=== PATIENT | female | born 1950 | race Caucasian/White ===

== ENCOUNTER 2016-12-11 20:19 | Inpatient (IN) | payer MEDICARE ==
[~2016-12-11] VITALS: Ht 167.6 cm; Wt 91.2 kg
[~2016-12-11 20:19] MED LIST: ATOR20TA PO; LEVO150T PO; OMEP20CA4 PO; OXYC-128 PO
[2016-12-11 20:45] VITALS: BP 168/88
[2016-12-11] MEDS ORDERED: MAGNESIUM HYDROXIDE 30 ML UDC PO PRN (21:30)
[2016-12-11] MEDS ORDERED: ACETAMINOPHEN 325 MG TABLET ONE (22:24)
[2016-12-11] MEDS ORDERED: TEMAZEPAM 7.5 MG CAPSULE ONE (22:24)
[2016-12-11] MEDS: ACETAMINOPHEN 325 MG TABLET PO PRN (22:35)
[2016-12-11] MEDS: TEMAZEPAM 7.5 MG CAPSULE PO PRN (22:35)
[2016-12-12] MEDS ORDERED: MAG HYDROX/AL HYDROX/SIMETH 30 ML UDC ONE (00:12)
[2016-12-12] MEDS: MAG HYDROX/AL HYDROX/SIMETH 30 ML UDC PO PRN (00:15)
[2016-12-12] MEDS ORDERED: ALBU18HF2 INH (06:41)
[2016-12-12] MEDS ORDERED: PRED50TA PO (06:41)
[2016-12-12] MEDS ORDERED: AZIT250T6 PO (06:41)
[2016-12-12 07:55] LABS: CREATININE 0.8 mg/dL (0.6-1.3)
[2016-12-12 08:14] VITALS: BP 135/84
[2016-12-12] MEDS ORDERED: FURO-145 PO (08:26)
[2016-12-12] MEDS ORDERED: BUPR-51 PO (08:26)
[2016-12-12] MEDS ORDERED: CLON2TAB4 PO (08:26)
[2016-12-12] MEDS ORDERED: POTA20LI25 PO (08:26)
[2016-12-12] MEDS ORDERED: ZOLP10TA6 PO (08:26)
[2016-12-12] MEDS ORDERED: NAPR500T3 PO (08:26)
[2016-12-12] MEDS ORDERED: ARIP30TA PO (08:30)
[2016-12-12] MEDS ORDERED: ALBUTEROL FS 2.5 MG/3 ML VIAL.NEB NEB PRN (08:30)
[2016-12-12] MEDS ORDERED: DORZ10DR11 EACHEYE (08:31)
[2016-12-12] MEDS: oxyCODONE/APAP (5/325 MG) 1 UDTAB TABLET PO PRN ×3 (11:07→23:05)
[2016-12-12] MEDS: LEVOTHYROXINE SODIUM 75 MCG TABLET PO SCH (14:18)
[2016-12-12] MEDS: PANTOPRAZOLE 40 MG TABLET.DR PO SCH (14:18)
[2016-12-12 16:00] VITALS: BP 145/93
[2016-12-12] MEDS: ARIPIPRAZOLE 5 MG TABLET PO SCH (16:27)
[2016-12-12] MEDS: BUPROPION XL 150 MG TAB.ER.24 PO SCH (16:28)
[2016-12-12 20:00] VITALS: BP 137/74
[2016-12-12] MEDS: ATORVASTATIN 10 MG TABLET PO SCH (21:49)
[2016-12-13 08:00] VITALS: BP 154/93
[2016-12-13] MEDS: BUPROPION XL 150 MG TAB.ER.24 PO SCH (09:13)
[2016-12-13] MEDS: ARIPIPRAZOLE 5 MG TABLET PO SCH (09:13)
[2016-12-13] MEDS: PANTOPRAZOLE 40 MG TABLET.DR PO SCH (09:13)
[2016-12-13] MEDS: LEVOTHYROXINE SODIUM 75 MCG TABLET PO SCH (09:14)
[2016-12-13] MEDS: ACETAMINOPHEN 325 MG TABLET PO PRN (13:07)
[2016-12-13 16:00] VITALS: BP 158/90
[2016-12-13] MEDS: oxyCODONE/APAP (5/325 MG) 1 UDTAB TABLET PO PRN (18:07)
[2016-12-13 20:00] VITALS: BP 158/79
[2016-12-13] MEDS: MAG HYDROX/AL HYDROX/SIMETH 30 ML UDC PO PRN (21:22)
[2016-12-13] MEDS: ATORVASTATIN 10 MG TABLET PO SCH (21:22)
[2016-12-13] MEDS: TEMAZEPAM 7.5 MG CAPSULE PO PRN (22:56)
[2016-12-14] MEDS: ACETAMINOPHEN 325 MG TABLET PO PRN (01:55)
[2016-12-14] MEDS: oxyCODONE/APAP (5/325 MG) 1 UDTAB TABLET PO PRN ×3 (05:36→20:22)
[2016-12-14] MEDS: LEVOTHYROXINE SODIUM 75 MCG TABLET PO SCH (08:33)
[2016-12-14] MEDS: ARIPIPRAZOLE 5 MG TABLET PO SCH (08:33)
[2016-12-14] MEDS: BUPROPION XL 150 MG TAB.ER.24 PO SCH (08:33)
[2016-12-14] MEDS: PANTOPRAZOLE 40 MG TABLET.DR PO SCH (08:33)
[2016-12-14] MEDS: LORAZEPAM 0.5 MG TABLET PO PRN (09:09)
[2016-12-14 12:14] LABS: BASOPHILS % (AUTO) 0.2 % (0.0-2.0); DIFF TOTAL % 100 %; EOSINOPHILS # (AUTO) 0.2 /CMM (0.0-0.7); EOSINOPHILS % (AUTO) 2.1 % (0.0-6.0); HEMATOCRIT 39 % (33-45); HEMOGLOBIN 12.7 g/dL (11.5-14.8); LYMPHOCYTES # (AUTO) 1.5 /CMM (0.8-4.8); LYMPHOCYTES % (AUTO) 18.9 % (20.0-44.0); MEAN CORPUSCULAR HEMOGLOBIN 29 PG (26.0-33.0); MEAN CORPUSCULAR HGB CONC 33 g/dl (31.0-36.0); MEAN CORPUSCULAR VOLUME 88 fL (82-100); MONOCYTES # (AUTO) 0.6 /CMM (0.1-1.30); MONOCYTES % (AUTO) 7.6 % (2.0-12.0); NEUTROPHILS # (AUTO) 5.6 /CMM (1.8-8.9); NEUTROPHILS % (AUTO) 71.2 % (43.0-81.0); PLATELET COUNT (AUTO) 345 /CMM (150-450); RED BLOOD CELL COUNT(AUTO) 4.39 MIL/uL (4.0-5.2); WHITE BLOOD COUNT (AUTO) 7.8 K/uL (4.3-11.0)
[2016-12-14 12:25] LABS: CALCIUM, SERUM 8.6 mg/dL (8.5-10.1); CREATININE 0.9 mg/dL (0.6-1.3); POTASSIUM 3.9 mmol/L (3.5-5.1)
[2016-12-14] MEDS: FUROSEMIDE 20 MG TABLET PO SCH (12:56)
[2016-12-14 13:27] LABS: ADD UA MICROSCOPIC NO; KETONES,URINE NEGATIVE (NEGATIVE); LEUKOCYTE ESTERASE ,URINE NEGATIVE (NEGATIVE); PH,URINE 6.5 (5.0-8.0)
[2016-12-14] MEDS ORDERED: PHENOL/SODIUM PHENOLATE 1 LOZ LOZENGE PO ONE (15:30)
[2016-12-14 16:00] VITALS: BP 132/67
[2016-12-14] MEDS ORDERED: MENTHOL/CETYLPYRD (CEPACOL) 1 LOZ LOZENGE PO ONE (16:30)
[2016-12-14] MEDS: DOCUSATE SODIUM 250 MG CAPSULE PO SCH (17:58)
[2016-12-14] MEDS: TIMOLOL MAL/DORZOLAM HCL OPHTH 10 ML BOTTLE EACHEYE SCH (17:58)
[2016-12-14] MEDS: NICOTINE PATCH (7MG) 7 MG PATCH.TD24 TD SCH (18:00)
[2016-12-14 20:00] VITALS: BP 124/71
[2016-12-14] MEDS: SENNOSIDES 8.6 MG TABLET PO SCH (21:10)
[2016-12-14] MEDS: ATORVASTATIN 10 MG TABLET PO SCH (21:10)
[2016-12-15] MEDS: oxyCODONE/APAP (5/325 MG) 1 UDTAB TABLET PO PRN ×2 (05:41→19:39)
[2016-12-15 07:41] LABS: BASOPHILS % (AUTO) 0.3 % (0.0-2.0); DIFF TOTAL % 100 %; EOSINOPHILS # (AUTO) 0.2 /CMM (0.0-0.7); EOSINOPHILS % (AUTO) 2.8 % (0.0-6.0); HEMATOCRIT 41 % (33-45); HEMOGLOBIN 13.3 g/dL (11.5-14.8); LYMPHOCYTES # (AUTO) 2.2 /CMM (0.8-4.8); LYMPHOCYTES % (AUTO) 28.6 % (20.0-44.0); MEAN CORPUSCULAR HEMOGLOBIN 29 PG (26.0-33.0); MEAN CORPUSCULAR HGB CONC 33 g/dl (31.0-36.0); MEAN CORPUSCULAR VOLUME 88 fL (82-100); MONOCYTES # (AUTO) 0.7 /CMM (0.1-1.30); MONOCYTES % (AUTO) 9.1 % (2.0-12.0); NEUTROPHILS # (AUTO) 4.5 /CMM (1.8-8.9); NEUTROPHILS % (AUTO) 59.2 % (43.0-81.0); PLATELET COUNT (AUTO) 368 /CMM (150-450); RED BLOOD CELL COUNT(AUTO) 4.61 MIL/uL (4.0-5.2); WHITE BLOOD COUNT (AUTO) 7.6 K/uL (4.3-11.0)
[2016-12-15] MEDS: BUPROPION XL 150 MG TAB.ER.24 PO SCH (08:16)
[2016-12-15] MEDS: NICOTINE PATCH (7MG) 7 MG PATCH.TD24 TD SCH (08:16)
[2016-12-15] MEDS: FUROSEMIDE 20 MG TABLET PO SCH (08:16)
[2016-12-15] MEDS: LEVOTHYROXINE SODIUM 75 MCG TABLET PO SCH (08:16)
[2016-12-15 08:17] VITALS: BP 153/72
[2016-12-15] MEDS: ARIPIPRAZOLE 5 MG TABLET PO SCH (08:17)
[2016-12-15] MEDS: DOCUSATE SODIUM 250 MG CAPSULE PO SCH (08:17)
[2016-12-15] MEDS: PANTOPRAZOLE 40 MG TABLET.DR PO SCH (08:17)
[2016-12-15] MEDS: TIMOLOL MAL/DORZOLAM HCL OPHTH 10 ML BOTTLE EACHEYE SCH ×2 (08:18→16:32)
[2016-12-15 08:30] LABS: CALCIUM, SERUM 8.7 mg/dL (8.5-10.1); CREATININE 0.9 mg/dL (0.6-1.3); PHOSPHORUS 3.5 mg/dL (2.5-4.9); POTASSIUM 4.3 mmol/L (3.5-5.1)
[2016-12-15] MEDS: ACETAMINOPHEN 325 MG TABLET PO PRN (11:19)
[2016-12-15 16:04] VITALS: BP 140/72
[2016-12-15 19:58] VITALS: BP 137/78
[2016-12-15] MEDS: ATORVASTATIN 10 MG TABLET PO SCH (21:46)
[2016-12-15] MEDS: SENNOSIDES 8.6 MG TABLET PO SCH (21:46)
[2016-12-15] MEDS: TEMAZEPAM 7.5 MG CAPSULE PO PRN (22:57)
[2016-12-16] MEDS: MAG HYDROX/AL HYDROX/SIMETH 30 ML UDC PO PRN (05:27)
[2016-12-16 08:00] VITALS: BP 124/61
[2016-12-16] MEDS: LEVOTHYROXINE SODIUM 75 MCG TABLET PO SCH (08:14)
[2016-12-16] MEDS: ARIPIPRAZOLE 5 MG TABLET PO SCH (08:20)
[2016-12-16] MEDS: DOCUSATE SODIUM 250 MG CAPSULE PO SCH (08:21)
[2016-12-16] MEDS: FUROSEMIDE 20 MG TABLET PO SCH (08:21)
[2016-12-16] MEDS: PANTOPRAZOLE 40 MG TABLET.DR PO SCH (08:21)
[2016-12-16] MEDS: BUPROPION XL 150 MG TAB.ER.24 PO SCH (08:21)
[2016-12-16] MEDS: NICOTINE PATCH (7MG) 7 MG PATCH.TD24 TD SCH (08:38)
[2016-12-16] MEDS: TIMOLOL MAL/DORZOLAM HCL OPHTH 10 ML BOTTLE EACHEYE SCH ×2 (08:43→17:01)
[2016-12-16] MEDS: oxyCODONE/APAP (5/325 MG) 1 UDTAB TABLET PO PRN ×2 (09:06→17:00)
[2016-12-16 16:00] VITALS: BP 120/72
[2016-12-16 19:53] VITALS: BP 109/60
[2016-12-16] MEDS: DIVALPROEX SODIUM 500 MG TABLET.DR PO SCH (20:03)
[2016-12-16] MEDS: ATORVASTATIN 10 MG TABLET PO SCH (21:02)
[2016-12-16] MEDS: SENNOSIDES 8.6 MG TABLET PO SCH (21:02)
[2016-12-16] MEDS: TEMAZEPAM 7.5 MG CAPSULE PO PRN (21:02)
[2016-12-17] MEDS: oxyCODONE/APAP (5/325 MG) 1 UDTAB TABLET PO PRN ×3 (04:12→17:55)
[2016-12-17] MEDS: LEVOTHYROXINE SODIUM 75 MCG TABLET PO SCH (07:30)
[2016-12-17] MEDS: PANTOPRAZOLE 40 MG TABLET.DR PO SCH (07:30)
[2016-12-17 08:12] VITALS: BP 122/65
[2016-12-17 08:26] LABS: ALBUMIN 3.2 g/dL (3.4-5.0); BILIRUBIN,TOTAL 0.4 mg/dL (0.2-1.0); CALCIUM, SERUM 8.6 mg/dL (8.5-10.1); POTASSIUM 4.4 mmol/L (3.5-5.1)
[2016-12-17] MEDS: ARIPIPRAZOLE 5 MG TABLET PO SCH (08:49)
[2016-12-17] MEDS: DOCUSATE SODIUM 250 MG CAPSULE PO SCH (08:50)
[2016-12-17] MEDS: TIMOLOL MAL/DORZOLAM HCL OPHTH 10 ML BOTTLE EACHEYE SCH ×2 (08:50→17:29)
[2016-12-17] MEDS: FUROSEMIDE 20 MG TABLET PO SCH (08:58)
[2016-12-17] MEDS: DIVALPROEX SODIUM 500 MG TABLET.DR PO SCH ×2 (08:58→20:28)
[2016-12-17] MEDS: BUPROPION XL 150 MG TAB.ER.24 PO SCH (08:58)
[2016-12-17] MEDS: NICOTINE PATCH (7MG) 7 MG PATCH.TD24 TD SCH (08:59)
[2016-12-17 16:05] VITALS: BP 114/64
[2016-12-17 20:17] VITALS: BP_SYST 109; BP_SYST 129; BP_DIAS 57
[2016-12-17] MEDS: TEMAZEPAM 7.5 MG CAPSULE PO PRN (20:29)
[2016-12-17] MEDS: ATORVASTATIN 10 MG TABLET PO SCH (22:16)
[2016-12-17] MEDS: SENNOSIDES 8.6 MG TABLET PO SCH (22:16)
[2016-12-18] MEDS: oxyCODONE/APAP (5/325 MG) 1 UDTAB TABLET PO PRN ×3 (04:33→18:52)
[2016-12-18] MEDS: FUROSEMIDE 20 MG TABLET PO SCH (09:05)
[2016-12-18] MEDS: LEVOTHYROXINE SODIUM 75 MCG TABLET PO SCH (09:06)
[2016-12-18] MEDS: ARIPIPRAZOLE 5 MG TABLET PO SCH (09:06)
[2016-12-18] MEDS: PANTOPRAZOLE 40 MG TABLET.DR PO SCH (09:06)
[2016-12-18] MEDS: DIVALPROEX SODIUM 500 MG TABLET.DR PO SCH ×2 (09:07→21:23)
[2016-12-18] MEDS: NICOTINE PATCH (7MG) 7 MG PATCH.TD24 TD SCH (09:07)
[2016-12-18] MEDS: DOCUSATE SODIUM 250 MG CAPSULE PO SCH (09:07)
[2016-12-18] MEDS: BUPROPION XL 150 MG TAB.ER.24 PO SCH (09:07)
[2016-12-18] MEDS: TIMOLOL MAL/DORZOLAM HCL OPHTH 10 ML BOTTLE EACHEYE SCH ×2 (09:10→18:17)
[2016-12-18 09:35] VITALS: BP 134/67
[2016-12-18] MEDS: ACETAMINOPHEN 325 MG TABLET PO PRN (15:02)
[2016-12-18 15:49] VITALS: BP 138/65
[2016-12-18 20:00] VITALS: BP 118/57
[2016-12-18] MEDS: TEMAZEPAM 7.5 MG CAPSULE PO PRN (21:23)
[2016-12-18] MEDS: SENNOSIDES 8.6 MG TABLET PO SCH (21:23)
[2016-12-18] MEDS: ATORVASTATIN 10 MG TABLET PO SCH (21:23)
[2016-12-19] MEDS: LORAZEPAM 0.5 MG TABLET PO PRN (02:18)
[2016-12-19] MEDS: oxyCODONE/APAP (5/325 MG) 1 UDTAB TABLET PO PRN ×2 (04:29→10:29)
[2016-12-19] MEDS: ARIPIPRAZOLE 5 MG TABLET PO SCH (08:11)
[2016-12-19] MEDS: DIVALPROEX SODIUM 500 MG TABLET.DR PO SCH (08:11)
[2016-12-19] MEDS: NICOTINE PATCH (7MG) 7 MG PATCH.TD24 TD SCH (08:11)
[2016-12-19] MEDS: LEVOTHYROXINE SODIUM 75 MCG TABLET PO SCH (08:12)
[2016-12-19] MEDS: PANTOPRAZOLE 40 MG TABLET.DR PO SCH (08:12)
[2016-12-19] MEDS: DOCUSATE SODIUM 250 MG CAPSULE PO SCH (08:12)
[2016-12-19] MEDS: BUPROPION XL 150 MG TAB.ER.24 PO SCH (08:12)
[2016-12-19] MEDS: FUROSEMIDE 20 MG TABLET PO SCH (08:12)
[2016-12-19] MEDS: TIMOLOL MAL/DORZOLAM HCL OPHTH 10 ML BOTTLE EACHEYE SCH (08:15)
[2016-12-19 08:17] VITALS: BP 138/91
== END 2016-12-19 13:05 | disposition home or self-care (01) | DRG 885 ==
LOC: GPS 20:19
PROVIDERS: ADMIT Psychiatry & Neurology Psychiatry; ATTEND Internal Medicine
DX: F33.3 Major depressive disorder, recurrent, severe with psychotic symptoms (principal); I50.30 Unspecified diastolic (congestive) heart failure; I10 Essential (primary) hypertension; E78.5 Hyperlipidemia, unspecified; K21.9 Gastro-esophageal reflux disease without esophagitis; E03.9 Hypothyroidism, unspecified; F41.9 Anxiety disorder, unspecified; M19.90 Unspecified osteoarthritis, unspecified site; E11.9 Type 2 diabetes mellitus without complications; Z91.19 Patient's noncompliance with other medical treatment and regimen
CPT/HCPCS: 36415; 80048-TC; 80053-TC; 80061-TC; 80164-TC; 81000-TC; 82565-TC; 83735-TC; 84100-TC; 85025-TC; 87081-TC; 93307-TC

== ENCOUNTER 2018-05-11 15:37 | Inpatient (IN) | payer MEDICARE ==
[~2018-05-11] VITALS: Ht 167.6 cm; Wt 79.4 kg
[~2018-05-11 15:37] MED LIST changes: +ALBU18HF2 INH; +AZIT250T13 PO; +DORZ10DR11 EACHEYE; +FURO-145 PO; +NAPR-1009 PO; +POTA20LI25 PO; +PRED50TA PO
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
--- NOTE | 2018-05-11 15:53 | NUR ---
DR. JEAN AT BEDSIDE
[2018-05-11 16:15] LABS: BASOPHILS # (AUTO) 0.1 /CMM (0.0-0.2); BASOPHILS % (AUTO) 0.8 % (0.0-2.0); EOSINOPHILS % (AUTO) 0.3 % (0.0-6.0); HEMATOCRIT 41 % (33-45); HEMOGLOBIN 13.9 g/dL (11.5-14.8); LYMPHOCYTES # (AUTO) 2.3 /CMM (0.8-4.8); MEAN CORPUSCULAR HEMOGLOBIN 30 PG (26.0-33.0); MEAN CORPUSCULAR HGB CONC 34 g/dl (31.0-36.0); MEAN CORPUSCULAR VOLUME 89 fL (82-100); MONOCYTES # (AUTO) 0.6 /CMM (0.1-1.30); MONOCYTES % (AUTO) 5.2 % (2.0-12.0); NEUTROPHILS # (AUTO) 8.3 /CMM (1.8-8.9); NEUTROPHILS % (AUTO) 73.7 % (43.0-81.0); PLATELET COUNT (AUTO) 288 /CMM (150-450); RDW COEFFICIENT OF VARIATION 14.1 (11.5-15.0); RED BLOOD CELL COUNT(AUTO) 4.63 MIL/uL (4.0-5.2); WHITE BLOOD COUNT (AUTO) 11.3 K/uL (4.3-11.0)
[2018-05-11 16:27] LABS: CALCIUM, SERUM 9.8 mg/dL (8.5-10.1); CARBON DIOXIDE 21 mmol/L (21-32); CHLORIDE 107 mmol/L (98-107); CREATININE 1.7 mg/dL (0.6-1.3); GLUCOSE 164 mg/dL (74-106); POTASSIUM 3.6 mmol/L (3.5-5.1); SODIUM SERUM 142 mmol/L (136-145); UREA NITROGEN, BLOOD 18 mg/dL (7-18)
[2018-05-11 16:34] LABS: ALANINE AMINOTRANSFERASE 42 U/L (12-78); ALBUMIN 4.7 g/dL (3.4-5.0); ALKALINE PHOSPHATASE 67 U/L (46-116); ASPARTATE AMINOTRANSFERASE 49 U/L (15-37); BILIRUBIN,DIRECT 0.1 mg/dL (0.0-0.2); TOTAL PROTEIN, SERUM 8.1 g/dL (6.4-8.2)
--- NOTE | 2018-05-11 16:36 | NUR ---
CALLED [facility] FOR PSYCH EVAL, ETA WITHIN THE HOUR
[2018-05-11] MEDS ORDERED: LORAZEPAM INJ 2 MG/ML VIAL ONE (16:44)
[2018-05-11] MEDS ORDERED: LORAZEPAM INJ 2 MG/ML VIAL IV ONE (17:00)
[2018-05-11] MEDS ORDERED: IV NS 0.9% 1,000 ML BAG IV ONE (17:00)
--- NOTE | 2018-05-11 17:04 | NUR ---
CALLED [facility] FOR PSYCH EVAL, ETA 1 HOUR
[2018-05-11] MEDS ORDERED: ZOLP5TAB2 PO (17:13)
[2018-05-11] MEDS ORDERED: BUPR300T52 PO (17:13)
[2018-05-11] MEDS ORDERED: GABA-532 PO (17:13)
[2018-05-11] MEDS ORDERED: CLON1TAB4 PO (17:13)
[2018-05-11 17:16] LABS: APPEARANCE,URINE Clear (CLEAR); BILIRUBIN,URINE SMALL (NEGATIVE); BLOOD, URINE Trace-lysed Ery/uL (NEGATIVE); COLOR,URINE Yellow (YELLOW); KETONES,URINE Trace (NEGATIVE); LEUKOCYTE ESTERASE ,URINE Negative (NEGATIVE); NITRITE, URINE Negative (NEGATIVE); PH,URINE 5.5 (5.0-8.0); PROTEIN,URINE >=300 mg/dl (NEGATIVE); UGLUCOSE Negative (NEGATIVE); UROBILINOGEN,URINE 0.2 EU/dL (0.2)
[2018-05-11 17:27] LABS: THYROID STIMULATING HORMONE 135.098 uIU/mL (0.358-3.74)
[2018-05-11 17:32] LABS: BACTERIA,URINE Few /HPF (None Seen); SQUAMOUS EPITHELIAL CELL,UR Few /HPF (None Seen); WBC,URINE 0-2 /HPF (0-3)
[2018-05-11 19:03] LABS: ALCOHOL, BLOOD < 3 mg/dL (0-0)
--- NOTE | 2018-05-11 19:16 | NUR ---
GPS 220-1 AT 2000
--- NOTE | 2018-05-11 19:33 | NUR ---
REPORT GIVEN TO JOANNA PATRICK
--- NOTE | 2018-05-11 20:26 | NUR ---
REPORT GIVEN TO EDOUARD
[2018-05-11] MEDS ORDERED: MAGNESIUM HYDROXIDE 30 ML UDC PO PRN (21:00)
[2018-05-11] MEDS ORDERED: clonazePAM 0.5 MG TABLET PO PRN (21:00)
[2018-05-11] MEDS ORDERED: TEMAZEPAM 7.5 MG CAPSULE PO PRN (21:00)
[2018-05-11] MEDS ORDERED: MAG HYDROX/AL HYDROX/SIMETH 30 ML UDC PO PRN (21:00)
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
[2018-05-11] MEDS: GABAPENTIN 100 MG CAPSULE PO SCH ×2 (23:02→23:12)
[2018-05-11] MEDS: LEVOTHYROXINE SODIUM 100 MCG TABLET PO SCH (23:02)
[2018-05-11] MEDS: ACETAMINOPHEN 325 MG TABLET PO PRN (23:02)
--- NOTE | 2018-05-11 23:16 | NUR ---
Pt c/o pain to right hip 01/10. Tylenol 650 mg/po prn given as ordered. Will continue to monitor.
--- NOTE | 2018-05-11 23:17 | NUR ---
Pt c/o of anxiety. Klonopin 0.5 mg 1 tab prn given as ordered. Will continue to momitor.
--- NOTE | 2018-05-12 00:24 | NUR ---
Tylenol effective. AR 0/10
--- NOTE | 2018-05-12 00:25 | NUR ---
Klonopin 0.5 mg effective. Pt calm and asleep.
[2018-05-12] MEDS ORDERED: DEXTROSE 50%-WATER 50 ML DISP.SYRIN IV PRN (06:30)
[2018-05-12] MEDS ORDERED: INSULIN REGULAR, HUMAN 100 UNIT/ML 3 ML VIAL SQ PRN (06:30)
[2018-05-12 07:53] LABS: BASOPHILS % (AUTO) 0.4 % (0.0-2.0); EOSINOPHILS % (AUTO) 1.5 % (0.0-6.0); HEMATOCRIT 39 % (33-45); HEMOGLOBIN 12.9 g/dL (11.5-14.8); LYMPHOCYTES # (AUTO) 2.5 /CMM (0.8-4.8); LYMPHOCYTES % (AUTO) 28.4 % (20.0-44.0); MEAN CORPUSCULAR HEMOGLOBIN 30 PG (26.0-33.0); MEAN CORPUSCULAR HGB CONC 33 g/dl (31.0-36.0); MEAN CORPUSCULAR VOLUME 92 fL (82-100); MONOCYTES # (AUTO) 0.6 /CMM (0.1-1.30); MONOCYTES % (AUTO) 6.8 % (2.0-12.0); NEUTROPHILS # (AUTO) 5.5 /CMM (1.8-8.9); NEUTROPHILS % (AUTO) 62.9 % (43.0-81.0); PLATELET COUNT (AUTO) 262 /CMM (150-450); RED BLOOD CELL COUNT(AUTO) 4.26 MIL/uL (4.0-5.2); WHITE BLOOD COUNT (AUTO) 8.8 K/uL (4.3-11.0)
[2018-05-12 07:57] LABS: ALBUMIN 4.1 g/dL (3.4-5.0); BILIRUBIN,TOTAL 1.3 mg/dL (0.2-1.0); CREATININE 1.2 mg/dL (0.6-1.3); POTASSIUM 3.4 mmol/L (3.5-5.1); TOTAL PROTEIN, SERUM 7.3 g/dL (6.4-8.2)
[2018-05-12 08:00] VITALS: BP 139/86
[2018-05-12] MEDS: BLOOD SUGAR DIAGNOSTIC 1 EACH STRIP IN SCH ×2 (08:03→12:22)
[2018-05-12 08:06] LABS: THYROID STIMULATING HORMONE 90.378 uIU/mL (0.358-3.74)
[2018-05-12] MEDS: LEVOTHYROXINE SODIUM 100 MCG TABLET PO SCH (08:37)
[2018-05-12] MEDS ORDERED: NICOTINE PATCH (21MG) 21 MG PATCH.TD24 TD SCH (09:00)
[2018-05-12] MEDS ORDERED: POTASSIUM CHLORIDE 20 MEQ TAB.PRT.SR PO ONE (09:30)
[2018-05-12] MEDS: ACETAMINOPHEN 325 MG TABLET PO PRN (14:00)
[2018-05-12] MEDS ORDERED: ARIPIPRAZOLE 5 MG TABLET PO SCH (14:00)
[2018-05-12] MEDS ORDERED: BUPROPION XL 150 MG TAB.ER.24 PO SCH (14:13)
--- NOTE | 2018-05-12 14:44 | NUR ---
ALETHEA contacted Jody Joyce [phone] pts therapist at [facility] for collateral information. SW unable to reach and left voicemail for callback.
--- NOTE | 2018-05-12 15:46 | NUR ---
INITIAL DISCHARGE PLAN: Patient may need placement. SW will follow up with therapist Jody Matthews [phone] from [facility] Address: [address] [address], [place] [address] for collateral information and pts current living situation and discharge needs. SW will help form a safe and proper discharge in collaboration with .
[2018-05-12 16:00] VITALS: BP 150/99
[2018-05-12] MEDS ORDERED: LORAZEPAM INJ 2 MG/ML VIAL IVP STA (16:33)
[2018-05-12 16:56] VITALS: BP 171/101
--- NOTE | 2018-05-12 18:05 | NUR ---
DISCHARGE NOTE PT WAS IN THE DINNING ROOM SITTING ON A CHAIR AND STARTED HAVING A SEIZURE, RAPID RESPONSE WAS CALLED AT 1620 WHEN PT WAS NOTICED TO BE SEIZING REPORTED BY SURGICAL SERVICES MANAGER ON SITE. RAPID RESPONSE ARRIVED AT 1622 AND CODE ENDED AT 1650. PT WAS NON RESPONSIVE, VS: 171/110, 94%RA, TEMP 98.0, BS 149. DR. LUJAN WAS CALLED AT 1620. DR. GARCIA WAS CALLED WELL AND GAVE ORDER FOR ATIVAN 2MG IVP X1 NOW. ATIVAN 2MG IVP AND PUT ON 2 LITERS OF O2 N/C WAS ADMINISTERED BY RAPID RESPONSE TEAM. DR. LUJAN CALLED BACK WITH ORDER TO TRANSFER PT TO TELE. PT WAS DISCHARGED FROM GPS UNIT AT 1805 TO TELE ROOM 105. REPORT WAS GIVEN TO RN ON UNIT WELL ALL PAPERWORK AND PT'S 5150 HOLD. PT WAS TRANSFERRED VIA [facility] CHAIR TO TELE UNIT ESCORTED BY MYSELF AND 2 CNAS. PT HAS HX OF PSYCHOSIS, GERD, DM, HTN, OA, HYPERLIPIDEMIA, ATHEROSCLEROSIS, DIASTOLIC COGNITIVE HEART FAILURE.
--- NOTE | 2018-05-13 09:12 | NUR ---
ALETHEA received phone call from Phyllis Hudson, clinician at [facility] [phone] stating that pt was no longer a client as of January 2018 due to non-compliance to treatment. Phyllis was unable to provide additional information to ALETHEA.
--- NOTE | 2018-05-13 11:35 | NUR ---
DISCHARGE NOTE: Pt was discharged to the medical floor. Pt will be followed by case management and discharged to SNF.
== END 2018-05-12 18:00 | DRG 885 ==
LOC: ER 15:38 → GPS 20:48
PROVIDERS: ADMIT Psychiatry & Neurology Psychiatry; ATTEND Psychiatry & Neurology Psychiatry
DX: F33.3 Major depressive disorder, recurrent, severe with psychotic symptoms (principal); I11.0 Hypertensive heart disease with heart failure; I50.30 Unspecified diastolic (congestive) heart failure; F29 Unspecified psychosis not due to a substance or known physiological condition; K21.9 Gastro-esophageal reflux disease without esophagitis; E03.9 Hypothyroidism, unspecified; F41.9 Anxiety disorder, unspecified; Z88.5 Allergy status to narcotic agent; Z88.0 Allergy status to penicillin; Z88.2 Allergy status to sulfonamides; Z79.899 Other long term (current) drug therapy; E78.5 Hyperlipidemia, unspecified; I70.0 Atherosclerosis of aorta; E11.9 Type 2 diabetes mellitus without complications; Z79.84 Long term (current) use of oral hypoglycemic drugs; F03.90 Unspecified dementia, unspecified severity, without behavioral disturbance, psychotic disturbance, mood disturbance, and anxiety
CPT/HCPCS: 36415; 76536-TC; 80048-TC; 80053-TC; 80061-TC; 80076-TC; 80305; 81000-TC; 82962-TC; 84439-TC; 84443-TC; 85025-TC; 87081-TC; A4606; G0480; J1815; J2060; Z7610

== ENCOUNTER 2018-05-12 17:00 | Inpatient (IN) | payer MEDICARE ==
[~2018-05-12] VITALS: Ht 167.6 cm; Wt 111.1 kg
[~2018-05-12 17:00] MED LIST changes: -ALBU18HF2 INH; -ATOR20TA PO; -AZIT250T13 PO; +BUPR300T52 PO; +CLON1TAB5 PO; -DORZ10DR11 EACHEYE; -FURO-145 PO; +GABA-532 PO; -LEVO150T PO; -NAPR-1009 PO; -OMEP20CA4 PO; -OXYC-128 PO; -POTA20LI25 PO; -PRED50TA PO; +ZOLP5TAB2 PO
[2018-05-12 18:00] VITALS: BP 115/73
--- NOTE | 2018-05-12 18:30 | NUR ---
RN NOTES RECEIVING NOTES PT RECEIVED FROM GPS, PATIENT ASSISTED TO BED, AWAKE ALERT AND ORIENTED X2 WITH NOTED DELAYED RESPONSE. RESPIRATIONS EVEN AND UNLABORED, VSS, PATIENT MADE COMFORTABLE. IV ACCESS TO RFA 22 G PATENT AND INTACT, NO REDNESS OR INFILTRATION NOTED. PATIENT ON 5150 HOLD FOR GRAVELY DISABLED, PLACED IN CHART. ALBERTO WELLS VEGETABLE COOK AWARE OF PT'S ARRIVAL WILL PLACE ADMITTING ORDERS. TRANSPORTATION PLANNING TECHNICIAN PLACED, WILL ENDORSE TO NEXT SHIFT FOR ADMISSION PROCESS AND CONTINUITY OF CARE
[2018-05-12 18:58] VITALS: BP 115/73
[2018-05-12 20:01] VITALS: BP 135/76
--- NOTE | 2018-05-12 21:22 | NUR ---
TELE-1/RETRIMMER SPOKE TO DR. HARTMANN REGARDING ADMISSION ORDERS. HE TOLD ME HE WILL CONTACT [facility] WHO IS ACCEPTING THE PT. AWAITING CALL BACK. WILL CONTINUE TO MONITOR 1:1
[2018-05-12] MEDS ORDERED: IV NS 0.9% 1,000 ML IV PRN (22:20)
--- NOTE | 2018-05-12 22:29 | NUR ---
TELE-1/DB2 DBA DR. LUJAN PLACED ADMITTING ORDERS.
[2018-05-12] MEDS ORDERED: ONDANSETRON HCL/PF 4 MG/2 ML VIAL IVP PRN (22:30)
[2018-05-12] MEDS ORDERED: ZOLPIDEM TARTRATE 5 MG TABLET PO PRN (22:30)
[2018-05-12] MEDS ORDERED: LORAZEPAM INJ 2 MG/ML VIAL IV PRN (22:30)
[2018-05-12] MEDS ORDERED: MAGNESIUM HYDROXIDE 30 ML UDC PO PRN (22:30)
[2018-05-12] MEDS ORDERED: Z GUARD REMEDY 2 OZ OINT TP PRN (22:30)
[2018-05-12] MEDS ORDERED: MAG HYDROX/AL HYDROX/SIMETH 30 ML UDC PO PRN (22:30)
[2018-05-12 22:45] LABS: BASOPHILS # (AUTO) 0.1 /CMM (0.0-0.2); BASOPHILS % (AUTO) 0.7 % (0.0-2.0); HEMATOCRIT 37 % (33-45); HEMOGLOBIN 12.4 g/dL (11.5-14.8); LYMPHOCYTES # (AUTO) 2.6 /CMM (0.8-4.8); LYMPHOCYTES % (AUTO) 23.8 % (20.0-44.0); MEAN CORPUSCULAR HEMOGLOBIN 31 PG (26.0-33.0); MEAN CORPUSCULAR HGB CONC 34 g/dl (31.0-36.0); MEAN CORPUSCULAR VOLUME 91 fL (82-100); MONOCYTES # (AUTO) 0.6 /CMM (0.1-1.30); MONOCYTES % (AUTO) 5.9 % (2.0-12.0); NEUTROPHILS # (AUTO) 7.4 /CMM (1.8-8.9); NEUTROPHILS % (AUTO) 68.6 % (43.0-81.0); PLATELET COUNT (AUTO) 265 /CMM (150-450); RDW COEFFICIENT OF VARIATION 14.9 (11.5-15.0); RED BLOOD CELL COUNT(AUTO) 4.06 MIL/uL (4.0-5.2); WHITE BLOOD COUNT (AUTO) 10.8 K/uL (4.3-11.0)
[2018-05-12 23:02] LABS: ALBUMIN 3.8 g/dL (3.4-5.0); BILIRUBIN,TOTAL 1.2 mg/dL (0.2-1.0); CALCIUM, SERUM 8.7 mg/dL (8.5-10.1); CREATININE 1.2 mg/dL (0.6-1.3); MAGNESIUM 2.2 mg/dL (1.8-2.4); POTASSIUM 3.7 mmol/L (3.5-5.1); TOTAL PROTEIN, SERUM 6.9 g/dL (6.4-8.2)
[2018-05-12] MEDS: clonazePAM 1 MG TABLET PO PRN (23:32)
[2018-05-12] MEDS: GABAPENTIN 100 MG CAPSULE PO SCH (23:32)
[2018-05-12 23:49] LABS: THYROID STIMULATING HORMONE 93.089 uIU/mL (0.358-3.74)
[2018-05-13] VITALS: BP 125/66
[2018-05-13 04:08] VITALS: BP 133/64
[2018-05-13 06:35] LABS: CALCIUM, SERUM 8.8 mg/dL (8.5-10.1); CREATININE 1.2 mg/dL (0.6-1.3); MAGNESIUM 2.2 mg/dL (1.8-2.4); PHOSPHORUS 3.4 mg/dL (2.5-4.9); POTASSIUM 3.6 mmol/L (3.5-5.1)
[2018-05-13] MEDS: ACETAMINOPHEN 325 MG TABLET PO PRN ×3 (06:44→21:36)
--- NOTE | 2018-05-13 07:10 | NUR ---
RN OPENING NOTES RECEIVED PT. PT IS STABLE AND IN BED. SITTER IS AT BEDSIDE. A/OX2, PT NOT CURRENTLY HAVING ANY AUDITORY HALLUCINATIONS. TELE MONITOR IN PLACE, READING SR. IV ACCESS LOCATED ON RFA 22G INFUSING NS AT 75 ML /HR. SAFETY MEASURES IN PLACE, CALL LIGHT WITHIN REACH. WILL CONTINUE TO MONITOR.
[2018-05-13 08:00] VITALS: BP 146/80
[2018-05-13 08:42] LABS: BASOPHILS % (AUTO) 0.3 % (0.0-2.0); EOSINOPHILS % (AUTO) 1.7 % (0.0-6.0); HEMATOCRIT 39 % (33-45); HEMOGLOBIN 12.8 g/dL (11.5-14.8); LYMPHOCYTES # (AUTO) 2.5 /CMM (0.8-4.8); LYMPHOCYTES % (AUTO) 31.1 % (20.0-44.0); MEAN CORPUSCULAR HEMOGLOBIN 30 PG (26.0-33.0); MEAN CORPUSCULAR HGB CONC 33 g/dl (31.0-36.0); MEAN CORPUSCULAR VOLUME 92 fL (82-100); MONOCYTES # (AUTO) 0.6 /CMM (0.1-1.30); MONOCYTES % (AUTO) 7.1 % (2.0-12.0); NEUTROPHILS # (AUTO) 4.9 /CMM (1.8-8.9); NEUTROPHILS % (AUTO) 59.8 % (43.0-81.0); PLATELET COUNT (AUTO) 253 /CMM (150-450); RDW COEFFICIENT OF VARIATION 15.1 (11.5-15.0); RED BLOOD CELL COUNT(AUTO) 4.26 MIL/uL (4.0-5.2); WHITE BLOOD COUNT (AUTO) 8.1 K/uL (4.3-11.0)
[2018-05-13] MEDS ORDERED: BUPROPION XL 150 MG TAB.ER.24 PO SCH (09:00)
[2018-05-13 12:00] VITALS: BP 127/50
--- NOTE | 2018-05-13 12:45 | NUR ---
RN NOTES PT TAKEN FOR CT HEAD W/O CONTRAST. RETURNED FROM RADIOLOGY, PT TO HAVE EEG, RN BEDSIDE TO PERFORM PROCEDURE. WILL CONTINUE TO MONITOR.
[2018-05-13] MEDS: clonazePAM 1 MG TABLET PO PRN ×2 (12:53→21:36)
[2018-05-13] MEDS: LEVOTHYROXINE INJ 100 MCG VIAL IV SCH (13:00)
--- NOTE | 2018-05-13 13:49 | NUR ---
RN NOTES SYNTHROID ADMIN SCHEDULED FOR 1300 DELAYED, PT LABS ON 05/12/18 FOUND TSH OF 95. AWAITING CLARIFICATION OF ORDER FROM MD. WILL CONTINUE TO MONITOR.
--- NOTE | 2018-05-13 19:32 | NUR ---
RN CLOSING NOTES ALL PT NEEDS ANTICIPATED AND MET. SAFETY MEASURES IN PLACE, CALL LIGHT IN REACH. WILL ENDORSE TO CAD LIBRARIAN FOR DENIS.
[2018-05-13 20:00] VITALS: BP 127/67
--- NOTE | 2018-05-13 20:00 | NUR ---
RN INITIAL NOTES RECEIVED PT STABLE AND IN BED. SITTER IS AT BEDSIDE. A/OX2, PT. TELE MONITOR IN PLACE, READING SR. IV ACCESS LOCATED ON RFA 22G PT REFUSES FLUIDS. SAFETY MEASURES IN PLACE, CALL LIGHT WITHIN REACH. WILL CONTINUE TO MONITOR.
[2018-05-13] MEDS: GABAPENTIN 100 MG CAPSULE PO SCH (21:36)
[2018-05-14] VITALS: BP 119/53
[2018-05-14 04:00] VITALS: BP 130/76
[2018-05-14] MEDS: ACETAMINOPHEN 325 MG TABLET PO PRN ×3 (04:07→21:52)
[2018-05-14] MEDS: clonazePAM 1 MG TABLET PO PRN ×3 (05:49→22:26)
--- NOTE | 2018-05-14 06:55 | NUR ---
RN CLOSING NOTES ALL PT NEEDS ANTICIPATED AND MET. SITTER AT BED SIDE. SAFETY MEASURES IN PLACE, CALL LIGHT IN REACH. WILL ENDORSE TO AM SHIFT FOR DENIS.
[2018-05-14 07:12] LABS: INR 0.9 (0.87-1.13)
[2018-05-14 07:28] LABS: CALCIUM, SERUM 8.5 mg/dL (8.5-10.1); CREATININE 1.1 mg/dL (0.6-1.3); MAGNESIUM 2.2 mg/dL (1.8-2.4); POTASSIUM 3.8 mmol/L (3.5-5.1)
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
[2018-05-14 08:00] VITALS: BP 99/65
[2018-05-14] MEDS: LEVOTHYROXINE INJ 100 MCG VIAL IV SCH (09:55)
[2018-05-14 11:42] LABS: BASOPHILS % (AUTO) 0.6 % (0.0-2.0); EOSINOPHILS % (AUTO) 1.9 % (0.0-6.0); HEMATOCRIT 37 % (33-45); HEMOGLOBIN 12.3 g/dL (11.5-14.8); LYMPHOCYTES # (AUTO) 2.4 /CMM (0.8-4.8); MEAN CORPUSCULAR HEMOGLOBIN 31 PG (26.0-33.0); MEAN CORPUSCULAR HGB CONC 34 g/dl (31.0-36.0); MEAN CORPUSCULAR VOLUME 91 fL (82-100); MONOCYTES # (AUTO) 0.4 /CMM (0.1-1.30); MONOCYTES % (AUTO) 6.2 % (2.0-12.0); NEUTROPHILS # (AUTO) 3.3 /CMM (1.8-8.9); NEUTROPHILS % (AUTO) 53.3 % (43.0-81.0); PLATELET COUNT (AUTO) 237 /CMM (150-450); RDW COEFFICIENT OF VARIATION 14.7 (11.5-15.0); RED BLOOD CELL COUNT(AUTO) 4.02 MIL/uL (4.0-5.2); WHITE BLOOD COUNT (AUTO) 6.2 K/uL (4.3-11.0)
[2018-05-14 12:00] VITALS: BP 126/78
[2018-05-14 16:00] VITALS: BP 100/62
--- NOTE | 2018-05-14 16:30 | NUR ---
SUPERINTENDENT STORAGE AREA NOTE: PATIENT WAS SEEN AND INTERVIEWED BY DR. ADAME (PSYCHIATRIST) AND PATIENT WAS NOT MAKING ANY SENSE ON HER CONVERSATION WITH THE MD. MD PLACED THE PATIENT ON 5250 HOLD AND CONTINUED THE HOLD FOR ANOTHER 14 DAYS. HOLD ORDER WAS PLACED ON THE CHART.
[2018-05-14] MEDS: ESCITALOPRAM OXALATE (10 MG) 10 MG TABLET PO SCH (17:13)
--- NOTE | 2018-05-14 19:51 | NUR ---
PLYWOOD PATCHER NOTE: PATIENT IN THE BED, SEATED AND TALKING TO HERSELF. REMAINED ON 1:1 SITTER. CALL LIGHT WITHIN REACH. REPORT GIVEN TO PM SHIFT NURSE FOR CONTINUITY OF CARE.
[2018-05-14 20:00] VITALS: BP 148/74
--- NOTE | 2018-05-14 20:00 | NUR ---
RN INITIAL NOTES RECEIVED PT STABLE AND IN BED. SITTER IS AT BEDSIDE. A/OX2, PT. TELE MONITOR IN PLACE, READING SR, HR 64. IV ACCESS LOCATED ON RFA 22G S/L. SAFETY MEASURES IN PLACE, CALL LIGHT WITHIN REACH. WILL CONTINUE TO MONITOR.
[2018-05-14] MEDS: GABAPENTIN 100 MG CAPSULE PO SCH (21:52)
[2018-05-14] MEDS ORDERED: ARIPIPRAZOLE 5 MG TABLET PO SCH (22:00)
[2018-05-15] VITALS: BP_SYST 134; BP_SYST 148; BP_DIAS 61; BP_DIAS 74
[2018-05-15 04:00] VITALS: BP 137/77
--- NOTE | 2018-05-15 07:10 | NUR ---
TELE/RN NOTES RECEIVED PATIENT IN BED, AWAKE, ALERT AND VERBALLY RESPONSIVE. NO SOB NOTED, TOLERATING ROOM AIR WELL. ON TELEMONITOR, SR 70S, WITH INTACT RFA SL, NO SIGNS OF INFECTION NOTED. ON 1:1 SITTER FOR CLOSE MONITORING, SAFETY MEASURE IN PLACED. CALL LIGHT WITHIN REACH. WILL CONT TO MONITOR
[2018-05-15 07:14] LABS: CALCIUM, SERUM 8.6 mg/dL (8.5-10.1); CREATININE 1.1 mg/dL (0.6-1.3); MAGNESIUM 2.3 mg/dL (1.8-2.4); POTASSIUM 4.2 mmol/L (3.5-5.1)
[2018-05-15 07:16] LABS: THYROID STIMULATING HORMONE 80.293 uIU/mL (0.358-3.74)
[2018-05-15 08:00] VITALS: BP 146/92
[2018-05-15] MEDS: LEVOTHYROXINE SODIUM 175 MCG TABLET PO SCH (08:10)
[2018-05-15] MEDS: ESCITALOPRAM OXALATE (10 MG) 10 MG TABLET PO SCH (09:03)
[2018-05-15] MEDS: ACETAMINOPHEN 325 MG TABLET PO PRN ×2 (09:04→21:37)
[2018-05-15] MEDS: clonazePAM 1 MG TABLET PO PRN ×2 (11:50→21:38)
[2018-05-15 12:00] VITALS: BP 143/71
[2018-05-15 16:00] VITALS: BP 142/76
--- NOTE | 2018-05-15 19:28 | NUR ---
RN CLOSING NOTES PT REMAINED IN STABLE CONDITION. NO SEIZURE EPISODE NOTED. NO ACUTE DISTRESS NOTED THROUGHOUT SHIFT. SAFETY MEASURES OBSERVED AT ALL TIMES. STILL ON 1:1 SITTER. ALL NEEDS ATTENDED. ENDORSED TO PM SHIFT NURSE FOR DENIS
[2018-05-15 20:00] VITALS: BP 144/90
--- NOTE | 2018-05-15 20:00 | NUR ---
RN INITIAL NOTES RECEIVED PT STABLE AND IN BED. SITTER IS AT BEDSIDE. A/OX2, PT. TELE MONITOR IN PLACE, READING SR, HR 78. IV ACCESS LOCATED ON RFA 22G S/L. SAFETY MEASURES IN PLACE, CALL LIGHT WITHIN REACH. WILL CONTINUE TO MONITOR.
[2018-05-15] MEDS: OLANZAPINE 5 MG/TAB.RAPDIS PO SCH (21:37)
[2018-05-15] MEDS: GABAPENTIN 100 MG CAPSULE PO SCH (21:38)
[2018-05-16] VITALS: BP 127/90
[2018-05-16 04:00] VITALS: BP 128/82
[2018-05-16] MEDS: clonazePAM 1 MG TABLET PO PRN (05:23)
[2018-05-16] MEDS: ACETAMINOPHEN 325 MG TABLET PO PRN (05:24)
[2018-05-16 06:45] LABS: BASOPHILS % (AUTO) 0.6 % (0.0-2.0); EOSINOPHILS % (AUTO) 0.8 % (0.0-6.0); HEMATOCRIT 39 % (33-45); HEMOGLOBIN 13.1 g/dL (11.5-14.8); LYMPHOCYTES # (AUTO) 1.8 /CMM (0.8-4.8); LYMPHOCYTES % (AUTO) 31.2 % (20.0-44.0); MEAN CORPUSCULAR HEMOGLOBIN 31 PG (26.0-33.0); MEAN CORPUSCULAR HGB CONC 34 g/dl (31.0-36.0); MEAN CORPUSCULAR VOLUME 91 fL (82-100); MONOCYTES # (AUTO) 0.4 /CMM (0.1-1.30); MONOCYTES % (AUTO) 6.4 % (2.0-12.0); NEUTROPHILS # (AUTO) 3.4 /CMM (1.8-8.9); PLATELET COUNT (AUTO) 265 /CMM (150-450); RDW COEFFICIENT OF VARIATION 14.5 (11.5-15.0); RED BLOOD CELL COUNT(AUTO) 4.26 MIL/uL (4.0-5.2); WHITE BLOOD COUNT (AUTO) 5.6 K/uL (4.3-11.0)
[2018-05-16 07:14] LABS: CALCIUM, SERUM 8.7 mg/dL (8.5-10.1); CREATININE 0.9 mg/dL (0.6-1.3); MAGNESIUM 2.3 mg/dL (1.8-2.4); PHOSPHORUS 3.6 mg/dL (2.5-4.9); POTASSIUM 4.1 mmol/L (3.5-5.1)
--- NOTE | 2018-05-16 07:15 | NUR ---
TELE/RN INITIAL NOTES RECEIVED PATIENT IN BED, ALERT AND ABLE TO MADE NEEDS KNOWN, TOLERATING ROOM AIR WELL, NO SOB NOTED. WITH INTACT RFA SL, NO SIGNS OF INFECTION NOTED. ON 1:1 SITTER FOR CLOSE MONITORING, SAFETY MEASURES AND SEIZURE PRECAUTION IN PLACED. CALL LIGHT WITHIN REACH. WILL CONT TO MONITOR
[2018-05-16 08:00] VITALS: BP 121/63
[2018-05-16] MEDS: LEVOTHYROXINE SODIUM 175 MCG TABLET PO SCH (08:15)
[2018-05-16] MEDS: ESCITALOPRAM OXALATE (10 MG) 10 MG TABLET PO SCH (08:25)
[2018-05-16] MEDS: OLANZAPINE 5 MG/TAB.RAPDIS PO SCH (08:25)
[2018-05-16 12:00] VITALS: BP 128/65
[2018-05-16] MEDS ORDERED: OLAN5TAB6 PO (12:24)
[2018-05-16] MEDS ORDERED: Levothyroxine Sodium PO (12:24)
[2018-05-16] MEDS ORDERED: ESCI10TA PO ×2 (12:24→19:06)
--- NOTE | 2018-05-16 14:20 | NUR ---
RN NOTES SEEN AND EXAMINED BY DR JONES, NOTIFIED THAT PT WAS MEDICALLY D/C BY DR LUJAN, CLARIFIED IF OK TO D/C PT TO OTHER FACILITY OR KEEP THE 5250 HOLD. PER MD, CANCEL TRANSFER TO FACILITY, D/C PT TO GPS.
[2018-05-16 16:00] VITALS: BP 139/84
--- NOTE | 2018-05-16 16:47 | NUR ---
RN NOTES REPORT GIVEN TO APPLE SANTOS RN
--- NOTE | 2018-05-16 18:30 | NUR ---
RN NOTES D/C PT TO GPS IN MEDICALLY STABLE CONDITION. NO ACUTE DISTRESS NOTED. D/C VIA W/C ACCOMPANIED BY RN AND ELVIRA CASTILLO. RFA SL D/C. IV CATH INTACT WITH NO SIGNS OF INFECTION NOTED. SAFETY MEASURES OBSERVED AT ALL TIMES. ALL NEEDS ANTICIPATED. D/C
[2018-05-16] MEDS ORDERED: LORA2VIA6 IV (19:06)
[2018-05-16] MEDS ORDERED: ONDA4VIA30 IV (19:06)
[2018-05-16] MEDS ORDERED: MAG30ORA PO (19:06)
[2018-05-16] MEDS ORDERED: ALLA266C2 TP (19:06)
[2018-05-16] MEDS ORDERED: OLAN5TAB3 PO (19:06)
[2018-05-16] MEDS ORDERED: MAGN400O6 PO (19:06)
[2018-05-16] MEDS ORDERED: LEVO175T7 PO (19:06)
[2018-05-16] MEDS ORDERED: ACET-868 PO (19:06)
== END 2018-05-16 18:40 | DRG 101 ==
LOC: TELE-TD 17:00 → TELE1 17:09
PROVIDERS: ADMIT Internal Medicine; ATTEND Internal Medicine
DX: G40.909 Epilepsy, unspecified, not intractable, without status epilepticus (principal); I50.32 Chronic diastolic (congestive) heart failure; F03.91 Unspecified dementia, unspecified severity, with behavioral disturbance; F19.939 Other psychoactive substance use, unspecified with withdrawal, unspecified; F33.3 Major depressive disorder, recurrent, severe with psychotic symptoms; E03.9 Hypothyroidism, unspecified; E78.5 Hyperlipidemia, unspecified; I11.0 Hypertensive heart disease with heart failure; T50.905A Adverse effect of unspecified drugs, medicaments and biological substances, initial encounter; Y92.009 Unspecified place in unspecified non-institutional (private) residence as the place of occurrence of the external cause; Z73.6 Limitation of activities due to disability; M19.90 Unspecified osteoarthritis, unspecified site; Z79.899 Other long term (current) drug therapy; K21.9 Gastro-esophageal reflux disease without esophagitis; I70.0 Atherosclerosis of aorta; T43.295A Adverse effect of other antidepressants, initial encounter; I67.2 Cerebral atherosclerosis
CPT/HCPCS: 36415; 70450-TC; 80048-TC; 80053-TC; 80061-TC; 82150-TC; 82533; 82746; 83690-TC; 83735-TC; 84100-TC; 84439-TC; 84443-TC; 85025-TC; 85610-TC; 95819-TC; J2405; J7030; Z7610

== ENCOUNTER 2018-05-16 18:56 | Inpatient (IN) | payer MEDICARE ==
[~2018-05-16] VITALS: Ht 167.6 cm; Wt 106.1 kg
--- NOTE | 2018-05-16 18:35 | NUR ---
GPS/RN RECEIVED PT FROM [facility] NO ACUTE DISTRESS NOTED NO SI OR HI AT THIS TIME. WILL ENDORSE TO LATHE MACHINE OPERATOR TO CONTINUE WITH ADMISSION.
[~2018-05-16 18:56] MED LIST changes: +ESCI10TA PO; +Levothyroxine Sodium PO; +OLAN5TAB6 PO
--- NOTE | 2018-05-16 19:04 | NUR ---
DR. JONES NOTIFIED ABOUT THE ADMISSION AND GAVE ORDERS.
[2018-05-16] MEDS ORDERED: ALLA266C2 TP (19:06)
[2018-05-16] MEDS ORDERED: MAG30ORA PO (19:06)
[2018-05-16] MEDS ORDERED: OLAN5TAB3 PO (19:06)
[2018-05-16] MEDS ORDERED: ESCI10TA PO (19:06)
[2018-05-16] MEDS ORDERED: ACET-868 PO (19:06)
[2018-05-16] MEDS ORDERED: ONDA4VIA30 IV (19:06)
[2018-05-16] MEDS ORDERED: LEVO175T7 PO (19:06)
[2018-05-16] MEDS ORDERED: MAGN400O6 PO (19:06)
[2018-05-16] MEDS ORDERED: LORA2VIA6 IV (19:06)
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
[2018-05-16] MEDS: ZOLPIDEM TARTRATE 5 MG TABLET PO PRN (22:44)
[2018-05-16] MEDS: ACETAMINOPHEN 325 MG TABLET PO PRN (22:44)
[2018-05-17] MEDS ORDERED: MAGNESIUM HYDROXIDE 30 ML UDC PO PRN
[2018-05-17] MEDS ORDERED: MAG HYDROX/AL HYDROX/SIMETH 30 ML UDC PO PRN
[2018-05-17] MEDS ORDERED: ACETAMINOPHEN 325 MG TABLET PO PRN
[2018-05-17] MEDS ORDERED: Z GUARD REMEDY 2 OZ OINT TP PRN
[2018-05-17 00:10] VITALS: BP 146/80
[2018-05-17] MEDS: ACETAMINOPHEN 325 MG TABLET PO PRN (05:13)
[2018-05-17 08:00] VITALS: BP 167/86
[2018-05-17] MEDS: NICOTINE PATCH (21MG) 21 MG PATCH.TD24 TD SCH (09:00)
[2018-05-17 09:13] LABS: CHOLESTEROL 267 mg/dL (<200); HDL CHOLESTEROL 86 mg/dL (40-60); LDL 153 mg/dL (0-99); TRIGLYCERIDES 147 mg/dL (30-150)
[2018-05-17 09:14] LABS: ALBUMIN 4.2 g/dL (3.4-5.0); BILIRUBIN,TOTAL 1.2 mg/dL (0.2-1.0); CALCIUM, SERUM 8.7 mg/dL (8.5-10.1); CREATININE 0.9 mg/dL (0.6-1.3); POTASSIUM 3.7 mmol/L (3.5-5.1); TOTAL PROTEIN, SERUM 7.4 g/dL (6.4-8.2)
[2018-05-17] MEDS: LEVOTHYROXINE SODIUM 175 MCG TABLET PO SCH (09:31)
--- NOTE | 2018-05-17 10:40 | NUR ---
GPS/RN DR LUJAN NOTIFIED OF PATIENT'S BP OF 167/86,AWAITING RESPONSE FOR NEW ORDERS.
[2018-05-17] MEDS: clonazePAM 0.5 MG TABLET PO PRN ×2 (11:11→21:15)
--- NOTE | 2018-05-17 11:11 | NUR ---
GPS/RN PATIENT IS EXTREMELY ANXIOUS, YELLING WITH EPISODES OF CRYING, ADMINISTERED KLONOPIN 1 MG, WILL CONTINUE TO MONITOR.
[2018-05-17] MEDS: ARIPIPRAZOLE 5 MG TABLET PO SCH ×2 (14:18→21:14)
[2018-05-17] MEDS ORDERED: hydrALAZINE HCL 25 MG TABLET PO PRN (15:00)
[2018-05-17 16:00] VITALS: BP 136/81
[2018-05-17 20:05] VITALS: BP 143/88
[2018-05-17] MEDS: GABAPENTIN 100 MG CAPSULE PO SCH (22:28)
[2018-05-17] MEDS: ZOLPIDEM TARTRATE 5 MG TABLET PO PRN (22:29)
[2018-05-18 08:45] VITALS: BP 142/76
[2018-05-18] MEDS: ARIPIPRAZOLE 5 MG TABLET PO SCH ×2 (09:05→20:54)
[2018-05-18] MEDS: LEVOTHYROXINE SODIUM 175 MCG TABLET PO SCH (09:05)
[2018-05-18] MEDS: NICOTINE PATCH (21MG) 21 MG PATCH.TD24 TD SCH (09:05)
[2018-05-18] MEDS: clonazePAM 0.5 MG TABLET PO PRN ×2 (09:09→20:57)
--- NOTE | 2018-05-18 09:42 | NUR ---
RE-ADMISSION WITHIN 30 DAYS: ALETHEA has reviewed this patients psychosocial dated 05/12/18 and can attest to the accuracy of the information therein. There have been no changes since her last assessment. Pts mood is irritable/agitated with blunted affect. Pts insight and judgement are impaired. Pt is extremely confused and disoriented. Patient has no family contact information in medical chart/records. ALETHEA spoke with Phyllis Hudson, clinician at [facility] [phone] who stated that pt was no longer a client as of January 2018 due to non-compliance to treatment. Pt may need placement. ALETHEA will help form a safe and proper discharge in collaboration with .
[2018-05-18 16:00] VITALS: BP 117/78
[2018-05-18] MEDS: ACETAMINOPHEN 325 MG TABLET PO PRN (16:37)
[2018-05-18 19:50] VITALS: BP 119/85
[2018-05-18] MEDS: GABAPENTIN 100 MG CAPSULE PO SCH (21:02)
[2018-05-18] MEDS: ZOLPIDEM TARTRATE 5 MG TABLET PO PRN (23:00)
[2018-05-19 08:00] VITALS: BP 122/80
[2018-05-19] MEDS: ARIPIPRAZOLE 5 MG TABLET PO SCH ×2 (08:29→20:23)
[2018-05-19] MEDS: LEVOTHYROXINE SODIUM 175 MCG TABLET PO SCH ×2 (08:29→08:37)
[2018-05-19] MEDS: NICOTINE PATCH (21MG) 21 MG PATCH.TD24 TD SCH (08:29)
[2018-05-19] MEDS: clonazePAM 0.5 MG TABLET PO PRN ×2 (08:36→20:26)
--- NOTE | 2018-05-19 08:36 | NUR ---
GPS/RN PATIENT IS EXTREMELY ANXIOUS, SHOUTING AT STAFF,ADMINISTERED KLONOPIN 1 MG, WILL CONTINUE TO MONITOR.
[2018-05-19 16:12] VITALS: BP 120/79
[2018-05-19 20:47] VITALS: BP 143/75
[2018-05-19] MEDS: GABAPENTIN 100 MG CAPSULE PO SCH (21:08)
[2018-05-19] MEDS: ZOLPIDEM TARTRATE 5 MG TABLET PO PRN (21:21)
[2018-05-19] MEDS: ACETAMINOPHEN 325 MG TABLET PO PRN (21:21)
[2018-05-19] MEDS: MAG HYDROX/AL HYDROX/SIMETH 30 ML UDC PO PRN (23:33)
--- NOTE | 2018-05-20 04:00 | NUR ---
gps rn note: Patient c/o constipation, 2 days no bm, prune juice given. will continue to monitor [id number] for safety
[2018-05-20] MEDS: MAGNESIUM HYDROXIDE 30 ML UDC PO PRN ×2 (06:55→20:28)
--- NOTE | 2018-05-20 06:57 | NUR ---
gps rn note: Prune juice not effective, patient requested MOM po given for as ordered. Endorsed to the next shift to continue to monitor
[2018-05-20 08:00] VITALS: BP 143/79
[2018-05-20] MEDS: LEVOTHYROXINE SODIUM 175 MCG TABLET PO SCH (08:50)
[2018-05-20] MEDS: NICOTINE PATCH (21MG) 21 MG PATCH.TD24 TD SCH (08:50)
[2018-05-20] MEDS: ARIPIPRAZOLE 5 MG TABLET PO SCH ×2 (10:24→21:43)
[2018-05-20] MEDS: ACETAMINOPHEN 325 MG TABLET PO PRN (13:25)
[2018-05-20] MEDS: clonazePAM 0.5 MG TABLET PO PRN (15:19)
[2018-05-20 16:00] VITALS: BP 115/71
--- NOTE | 2018-05-20 18:30 | NUR ---
med. x1 with tylenol for back pain and klonopin x 1 for nervousness.
[2018-05-20] MEDS: MAG HYDROX/AL HYDROX/SIMETH 30 ML UDC PO PRN (20:28)
--- NOTE | 2018-05-20 20:28 | NUR ---
C/O " CONSTIPATION. MOM GIVEN ORDERED WILL CONTINUE TO MONITOR.
--- NOTE | 2018-05-20 20:28 | NUR ---
GPS NOTES C/O " UPSET STOMACH ", MAALOX GIVEN ORDERED, WILL CONTINUE TO MONITOR .
[2018-05-20] MEDS: GABAPENTIN 100 MG CAPSULE PO SCH (21:42)
[2018-05-20] MEDS: ZOLPIDEM TARTRATE 5 MG TABLET PO PRN (21:42)
--- NOTE | 2018-05-20 21:42 | NUR ---
GPS NOTES C/O " UNABLE TO SLEEP", AMBIEN 5 MG PO GIVEN ORDERED. WILL CONTINUE TO MONITOR PATIENT FOR SAFETY.
[2018-05-20 21:43] VITALS: BP 139/80
[2018-05-21] MEDS: MAG HYDROX/AL HYDROX/SIMETH 30 ML UDC PO PRN ×2 (04:28→17:26)
--- NOTE | 2018-05-21 04:28 | NUR ---
GPS NOTES C/O " UPSET STOMACH ", MAALOX GIVEN ORDERED, WILL CONTINUE TO MONITOR
[2018-05-21] MEDS: ACETAMINOPHEN 325 MG TABLET PO PRN ×2 (05:27→13:01)
--- NOTE | 2018-05-21 05:27 | NUR ---
GPS NOTES C/O " PAIN ", TYLENOL 650 MG PO GIVEN ORDERED. WILL CONTINUE TO MONITOR.
[2018-05-21] MEDS: NICOTINE PATCH (21MG) 21 MG PATCH.TD24 TD SCH (08:06)
[2018-05-21] MEDS: ARIPIPRAZOLE 5 MG TABLET PO SCH ×2 (08:06→22:22)
[2018-05-21] MEDS: LEVOTHYROXINE SODIUM 175 MCG TABLET PO SCH (08:06)
[2018-05-21 08:17] VITALS: BP 129/70
[2018-05-21] MEDS: clonazePAM 0.5 MG TABLET PO PRN (09:23)
--- NOTE | 2018-05-21 09:30 | NUR ---
GPS/RN PATIENT IS NOTED TO BE EXTREMELY ANXIOUS,ADMINISTERED KLONOPIN 1 MG, WILL CONTINUE TO MONITOR.
--- NOTE | 2018-05-21 13:04 | NUR ---
GPS/RN PATIENT REPORTS HEADACHE, ADMINISTERED TYLENOL 650 MG PER PT REQUEST. WILL CONTINUE TO MONITOR.
[2018-05-21 16:00] VITALS: BP 129/69
[2018-05-21 20:00] VITALS: BP 104/64
[2018-05-21] MEDS: GABAPENTIN 100 MG CAPSULE PO SCH (22:22)
[2018-05-21] MEDS: ZOLPIDEM TARTRATE 5 MG TABLET PO PRN (22:23)
[2018-05-22] MEDS: ACETAMINOPHEN 325 MG TABLET PO PRN ×2 (01:34→16:05)
[2018-05-22 08:00] VITALS: BP 139/86
[2018-05-22] MEDS: NICOTINE PATCH (21MG) 21 MG PATCH.TD24 TD SCH (08:05)
[2018-05-22] MEDS: ARIPIPRAZOLE 5 MG TABLET PO SCH ×2 (08:05→22:30)
[2018-05-22] MEDS: LEVOTHYROXINE SODIUM 175 MCG TABLET PO SCH (08:05)
[2018-05-22] MEDS: clonazePAM 0.5 MG TABLET PO PRN ×2 (09:29→22:30)
[2018-05-22 16:24] VITALS: BP 135/86
[2018-05-22 20:00] VITALS: BP 140/68
[2018-05-22] MEDS: GABAPENTIN 100 MG CAPSULE PO SCH (22:30)
[2018-05-23] MEDS: ZOLPIDEM TARTRATE 5 MG TABLET PO PRN ×2 (00:43→22:17)
[2018-05-23] MEDS: ACETAMINOPHEN 325 MG TABLET PO PRN ×2 (04:36→14:17)
[2018-05-23] MEDS: MAGNESIUM HYDROXIDE 30 ML UDC PO PRN (04:36)
[2018-05-23 08:00] VITALS: BP 130/81
[2018-05-23] MEDS: LEVOTHYROXINE SODIUM 175 MCG TABLET PO SCH (09:18)
[2018-05-23] MEDS: NICOTINE PATCH (21MG) 21 MG PATCH.TD24 TD SCH (09:18)
[2018-05-23] MEDS: ARIPIPRAZOLE 5 MG TABLET PO SCH ×2 (09:19→22:16)
[2018-05-23] MEDS: clonazePAM 0.5 MG TABLET PO PRN ×2 (09:25→20:46)
[2018-05-23 16:00] VITALS: BP 152/62
[2018-05-23 20:00] VITALS: BP 142/80
[2018-05-23] MEDS: GABAPENTIN 100 MG CAPSULE PO SCH (22:17)
[2018-05-24] MEDS: ACETAMINOPHEN 325 MG TABLET PO PRN ×3 (07:03→19:48)
[2018-05-24 08:00] VITALS: BP 119/72
[2018-05-24] MEDS: clonazePAM 0.5 MG TABLET PO PRN ×2 (08:15→20:51)
[2018-05-24] MEDS: LEVOTHYROXINE SODIUM 175 MCG TABLET PO SCH (08:15)
[2018-05-24] MEDS: NICOTINE PATCH (21MG) 21 MG PATCH.TD24 TD SCH (08:15)
--- NOTE | 2018-05-24 08:15 | NUR ---
[id number]: GAVE KLONOPIN 1 MG PO DUE TO INCREASED ANXIETY UPON PT REQUEST AND WILL CONTINUE TO MONITOR FOR EFFECTIVENESS OF MEDICATION
[2018-05-24] MEDS: ARIPIPRAZOLE 5 MG TABLET PO SCH ×2 (08:20→20:50)
[2018-05-24] MEDS: MAG HYDROX/AL HYDROX/SIMETH 30 ML UDC PO PRN (13:54)
--- NOTE | 2018-05-24 13:54 | NUR ---
[id number]: GAVE MAALOX SUSPENSION 30 ML PO DUE INDIGESTION UPON PT REQUEST AND WILL CONTINUE TO MONITOR FOR EFFECTIVENESS OF MEDICATION
[2018-05-24 15:57] VITALS: BP 136/76
--- NOTE | 2018-05-24 16:04 | NUR ---
[id number]: GAVE TYLENOL 650 MG PO DUE TO GENERALIZED PAIN 5/10 UPON PT REQUEST AND WILL CONTINUE TO MONITOR FOR EFFECTIVENESS OF MEDICATION
--- NOTE | 2018-05-24 19:48 | NUR ---
C/O HEADACHE, TYLENOL 650 MG TAB PO GIVEN.
[2018-05-24 20:22] VITALS: BP 131/54
--- NOTE | 2018-05-24 20:54 | NUR ---
KLONOPIN 1 MG TAB PO GIVEN PER PATIENT'S REQUEST.
[2018-05-24] MEDS: GABAPENTIN 100 MG CAPSULE PO SCH (21:01)
[2018-05-25] MEDS: ACETAMINOPHEN 325 MG TABLET PO PRN ×3 (02:00→08:35)
[2018-05-25] MEDS: clonazePAM 0.5 MG TABLET PO PRN ×3 (05:37→15:43)
--- NOTE | 2018-05-25 05:37 | NUR ---
GPS RN NOTE, PATIENT HAS A COMPLAINT OF FEELING ANXIOUS AND IS REQUESTING KLONOPIN AT THIS TIME. PATIENT VITAL SIGNS ARE STABLE. GAVE KLONOPIN 1MG PO TID ORDERED. WILL REASSESS FOR ANXIETY AND I WILL CONTINUE TO MONITOR THIS PATIENT.
[2018-05-25 08:00] VITALS: BP 119/57
[2018-05-25] MEDS: LEVOTHYROXINE SODIUM 175 MCG TABLET PO SCH (08:30)
--- NOTE | 2018-05-25 08:35 | NUR ---
[id number]: GAVE TYLENOL 650 MG PO DUE TO GENERALIZED PAIN 5/10 UPON PT REQUEST AND WILL CONTINUE TO MONITOR FOR EFFECTIVENESS OF MEDICATION
[2018-05-25] MEDS: NICOTINE PATCH (21MG) 21 MG PATCH.TD24 TD SCH (09:43)
[2018-05-25] MEDS: ARIPIPRAZOLE 5 MG TABLET PO SCH ×2 (12:38→21:17)
--- NOTE | 2018-05-25 12:38 | NUR ---
[id number]: GAVE KLONOPIN 1 MG PO DUE TO INCREASED ANXIETY UPON PT REQUEST AND WILL CONTINUE TO MONITOR FOR EFFECTIVENESS OF MEDICATION
[2018-05-25] MEDS: MAG HYDROX/AL HYDROX/SIMETH 30 ML UDC PO PRN ×2 (14:54→21:17)
--- NOTE | 2018-05-25 15:43 | NUR ---
[id number]: GAVE KLONOPIN 1 MG PO DUE TO INCREASED ANXIETY UPON PT REQUEST AND WILL CONTINUE TO MONITOR FOR EFFECTIVENESS OF MEDICATION
[2018-05-25 16:00] VITALS: BP 128/88
[2018-05-25] MEDS: MENTHOL/CETYLPYRD (CEPACOL) 1 LOZ LOZENGE PO PRN (18:21)
--- NOTE | 2018-05-25 18:25 | NUR ---
[id number]: GAVE CEPHACOL 1 0Z LOZENGE PO DUE TO SORE THROAT UPON PT REQUEST AND WILL CONTINUE TO MONITOR FOE EFFECTIVENESS OF MEDICATION
[2018-05-25 20:00] VITALS: BP 142/76
[2018-05-25] MEDS: GABAPENTIN 100 MG CAPSULE PO SCH (21:17)
[2018-05-25] MEDS: ZOLPIDEM TARTRATE 5 MG TABLET PO PRN (22:23)
[2018-05-26] MEDS: clonazePAM 0.5 MG TABLET PO PRN ×2 (03:01→11:04)
--- NOTE | 2018-05-26 03:01 | NUR ---
GPS-RN PATIENT IS ANXIOUS, PACING IN THE HALLWAY, PATIENT IS REQUESTING FOR KLONOPIN. ADMINISTERED KLONOPIN 1MG PO ORDERED. WILL CONTINUE TO MONITOR.
[2018-05-26] MEDS: ACETAMINOPHEN 325 MG TABLET PO PRN (05:54)
[2018-05-26] MEDS: MENTHOL/CETYLPYRD (CEPACOL) 1 LOZ LOZENGE PO PRN (06:15)
[2018-05-26 08:00] VITALS: BP 113/70
[2018-05-26] MEDS: NICOTINE PATCH (21MG) 21 MG PATCH.TD24 TD SCH (08:06)
[2018-05-26] MEDS: ARIPIPRAZOLE 5 MG TABLET PO SCH (08:06)
[2018-05-26] MEDS: LEVOTHYROXINE SODIUM 175 MCG TABLET PO SCH (08:06)
[2018-05-26] MEDS: MAG HYDROX/AL HYDROX/SIMETH 30 ML UDC PO PRN (09:15)
--- NOTE | 2018-05-26 09:15 | NUR ---
NURSING NOTE PT C/O INDIGESTION, REQUESTING MAALOX, MAALOX SUSP 30ML PO GIVEN PER ORDER. WILL CONTINUE TO MONITOR.
--- NOTE | 2018-05-26 11:05 | NUR ---
NURSING NOTE PATIENT IS ANXIOUS, PACING IN THE HALLWAY, PATIENT IS REQUESTING FOR KLONOPIN. ADMINISTERED KLONOPIN 1MG PO ORDERED. WILL CONTINUE TO MONITOR.
--- NOTE | 2018-05-26 14:26 | NUR ---
NURSING NOTE PT WAS DISCHARGED TODAY AT 1425 VIA AMBULANCE ON A GURNEY ACCOMPANIED BY 2 SAP ADMINISTRATOR. PT WAS DISCHARGED TO [facility]. PT IS A&OX2-3, CALM, COOPERATIVE, ANXIOUS, PERIODS OF CONFUSION, REDIRECTABLE, DENIES SI/HI/AVH AT THE TIME OF DISCHARGE. VS: 147/72, 82, 18, 96% RA, 0/10 PAIN. SKIN INTACT, ALL PAPERWORK HAS BEEN SIGNED AND EXPLAINED TO THE PT. COPIES OF PAPERWORK HAVE BEEN SENT TO THE SNF WELL. ALL BELONGINGS HAVE BEEN RETURNED TO THE PT. REPORT WAS GIVEN TO JOANNA WILLS AT [phone]. REPORT WAS ALSO GIVEN TO SAP ADMINISTRATOR. DISCHARGE ORDER WAS OBTAINED FROM DR. ADAME. PT IS MEDICALLY STABLE FOR DISCHARGE PER DR. GARCIA.
--- NOTE | 2018-05-26 16:04 | NUR ---
DISCHARGE NOTE: Pt was discharged at 2:00pm via [facility] ambulance trip # [id number] to [facility] [id number] [place], [place] [id number] . No family to notify. Pt mood was happy with congruent affect and denied visual/auditory hallucination and suicidal/homicidal ideations. Pt will be under the care of Psychiatrist: Dr. Krista Baires [address], [place] [address] [phone] and Real Estate Underwriter: Dr. Al Manriquez Address: [address] [address] . The multidisciplinary exitcare form was done, printed, signed, and given to the patient.
== END 2018-05-26 14:25 | DRG 885 ==
LOC: GPS 18:56
PROVIDERS: ADMIT Psychiatry & Neurology Psychosomatic Medicine; ATTEND Psychiatry & Neurology Psychosomatic Medicine
DX: F25.0 Schizoaffective disorder, bipolar type (principal); E78.5 Hyperlipidemia, unspecified; E66.01 Morbid (severe) obesity due to excess calories; F32.9 Major depressive disorder, single episode, unspecified; F17.210 Nicotine dependence, cigarettes, uncomplicated; F03.90 Unspecified dementia, unspecified severity, without behavioral disturbance, psychotic disturbance, mood disturbance, and anxiety; F39 Unspecified mood [affective] disorder; E03.9 Hypothyroidism, unspecified; Z68.37 Body mass index [BMI] 37.0-37.9, adult; M54.10 Radiculopathy, site unspecified; K21.9 Gastro-esophageal reflux disease without esophagitis; Z91.14 Patient's other noncompliance with medication regimen; J44.9 Chronic obstructive pulmonary disease, unspecified; E11.9 Type 2 diabetes mellitus without complications; G89.29 Other chronic pain; F41.9 Anxiety disorder, unspecified; I10 Essential (primary) hypertension
CPT/HCPCS: 36415; 71045-TC; 80053-TC; 80061-TC